=== PATIENT | male | born 1945 | race Caucasian/White ===

== ENCOUNTER 2017-11-13 05:48 | Day surgery (SDC) | payer MEDICARE, BC ==
[~2017-11-13 05:48] MED LIST: CEFAZOLIN 1 GM/D5W RTU 1 GM/50 ML RTUPB IV PRN; DEXTROSE 5%-1/2 NORMAL SALINE 1,000 ML IV PRN; DIAZEPAM 5 MG TABLET PO PRN; OXYCODONE-ACETAMINOPHEN 5-325 MG TABLET PO PRN
[2017-11-13] MEDS ORDERED: OXYCODONE-ACETAMINOPHEN 5-325 MG TABLET ONE (06:34)
[2017-11-13] MEDS ORDERED: DIAZEPAM 5 MG TABLET ONE (06:34)
[2017-11-13] MEDS ORDERED: CEFAZOLIN 1 GM/D5W RTU 1 GM/50 ML RTUPB IV ONE (06:35)
[2017-11-13 06:53] LABS: HEMATOCRIT 43.9 % (37.9-51.0); MEAN CORPUSCULAR HEMOGLOBIN 29.7 pg (27.0-33.4); MEAN CORPUSCULAR HGB CONC 34.1 g/dL (32.0-36.0); MEAN CORPUSCULAR VOLUME 87 fl (80-97); PLATELET COUNT 212 10^3/uL (150-450); RED BLOOD COUNT 5.04 10^6/uL (4.35-5.55); RED CELL DISTRIBUTION WIDTH 15.6 % (11.5-14.0); WHITE BLOOD COUNT 6.5 10^3/uL (4.0-10.5)
--- NOTE | 2017-11-13 07:19 | RADIOLOGY REPORT (SQ) ---
EXAM DESCRIPTION: XR CHEST 1 VIEW COMPLETED DATE/TME: 11/13/2017 00:00 CLINICAL HISTORY: 72 years Male, pre op screening COMPARISON: 1.13.16 NUMBER OF VIEWS/TECHNIQUE: 1/AP FINDINGS: Adequate lung volume, mild central edema pattern small patchiness of the right upper lobe and mild interstitial markings of the left lower hemithorax, normal cardiac silhouette, and intact bony thorax. IMPRESSION: Mild central pulmonary edema pattern. Differential etiologies include infectious, inflammatory, and neoplastic processes. Recommend CR/CT surveillance including at 7-12 weeks following initiation of any clinically warranted therapy.
[2017-11-13 07:20] LABS: ANION GAP 9 (5-19); BLOOD UREA NITROGEN 21 mg/dL (7-20); CALCIUM 9.1 mg/dL (8.4-10.2); CARBON DIOXIDE 26 mmol/L (22-30); CHLORIDE 101 mmol/L (98-107); GLUCOSE 103 mg/dL (75-110); SODIUM 136.4 mmol/L (137-145)
[2017-11-13] MEDS ORDERED: FENTANYL CITRATE INJ/PF 100 MCG/2 ML AMPUL ONE (07:27)
[2017-11-13] MEDS ORDERED: MIDAZOLAM 2 MG/2 ML INJ ONE (07:27)
[2017-11-13] MEDS ORDERED: LIDOCAINE 0.5% INJ-PF (5 MG/ML) 50 ML SDV ONE (07:27)
[2017-11-13] MEDS ORDERED: BACITRACIN INJ 50,000 UNIT VIAL ONE (07:28)
--- NOTE | 2017-11-13 09:26 | Discharge Summary ---
Discharge Summary (SDC) - Discharge Final Diagnosis: #1 left kidney cancer. Date of Surgery: 11/13/17 Discharge Date: 11/13/17 Condition: Good Treatment or Instructions: Discharge home [after recovery per ASU criteria]. Diet ,as tolerated, when fully awake advance as tolerated. Activities within moderation encouraged. Follow up in my office by appointment in about [1 week]. Call for appointment. Leave wounds [covered], [keep clean and dry, until office visit in 1 week]. Hold of on school/work [until evaluation in office]. Meds per med rec. Percocet. May shower [in 48 hrs], [try to keep operated area as dry as possible]. Prescriptions: Oxycodone HCl/Acetaminophen [Percocet 5-325 mg Tablet] 1 tab PO ASDIR PRN #15 tab PRN Reason: Referrals: ZACHARIAH BILLINGS MD [Primary Care Provider] - Discharge Diet: As Tolerated Respiratory Treatments at Home: Deep Breathing/Coughing Discharge Activity: Activity As Tolerated
--- NOTE | 2017-11-13 09:29 | Operative Report ---
Operative Report DATE OF SURGERY: 11/13/17 PREOPERATIVE DIAGNOSIS: #1 left kidney cancer. POSTOPERATIVE DIAGNOSIS: #1 left kidney cancer. OPERATION: 1. Ultrasound evaluation in an real time access in the right internal jugular vein. 2. Port-A-Cath insertion via real time access in the right internal jugular vein. 3. Angiogram and interpretation. SURGEON: LUIS DANIEL PERERA CHAIN OFFBEARER: None. ANESTHESIA: Moderate Sedation TISSUE REMOVED OR ALTERED: Not applicable. COMPLICATIONS: None. ESTIMATED BLOOD LOSS: 5 mL. INTRAOPERATIVE FINDINGS: Of a satisfactory right internal jugular vein to support Port-A-Cath. Easy egress of blood and ingress of heparinized solution. Smooth flow of contrast through the right atrium, ventricle and pulmonary outflow tract. Tip of catheter just down in the right atrium. PROCEDURE: After obtaining informed consent, the patient was taken to the Systems Programmer and positioned supine. The [right] neck and chest were prepared with chlorhexidine and draped out with sterile linen. After the " universal timeout", in which it was verified that the patient continued to receive antibiotic, the procedure commenced. A steriley sheathed ultrasound probe was used to evaluate the [ right] internal jugular vein. Local anesthesia was infiltrated adjacent to the probe. Access into the [right] internal jugular vein was obtained using a micropuncture needle, followed by micropuncture wire and then a micropuncture catheter. This was followed by introduction of a 0.035 guidewire the tip of which was placed down into the inferior vena cava . The port sites was marked , locally anesthetized and incision made. Dissection now proceeded to the deep subcutaneous subcutaneous tissues so that a pocket for the port was made. Meticulous hemostasis was secured and the catheter was tunneled between the 2 incisions. Proximally, the catheter was now positioned using a peel-away sheath. Distally the catheter was tailored to an appropriate length and then mated to the port using the contained fixating device. The port was now placed in the pocket and the catheter optimally positioned. The port was accessed with a Restrepo needle and an angiogram done under digital subtraction. The findings as dictated. With adequate and satisfactory positioning, the chamber was irrigated with heparinized solution. The wounds were now closed using interrupted 3-0 PDS to the subcutaneous tissues and a continuous subcuticular suture of 4-0 Monocryl to the skin. These are reinforced with Steri-Strips over benzoin and then dressings applied. Copies of the dictated operative report for Dr. Luis Daniel Barahona MD.
[2017-11-13 09:57] VITALS: BP 118/63
--- NOTE | 2017-11-13 14:09 | RADIOLOGY REPORT (SQ) ---
EXAM DESCRIPTION: PORTACATH INSERTION COMPLETED DATE/TIME: 11/13/2017 9:01 am REASON FOR STUDY: C64.2 LEFT KIDNEY CANCER C64.2 MALIGNANT NEOPLASM OF LEFT KIDNEY, EXCEPT RENAL PE LVIS Z79.899 OTHER INTERMEDIATE (CURRENT) DRUG THERAPY COMPARISON: None. FLUOROSCOPY TIME: 0.1 minute 18 images saved to PACS. TECHNIQUE: Intra-operative images acquired during surgical procedure to evaluate progress. NUMBER OF IMAGES: Multiple fluoroscopic and cine fluoroscopic images. LIMITATIONS: None. FINDINGS: Selected images from right-sided Port-A-Cath placement. Tip overlies SVC. IMPRESSION: IMAGE(S) OBTAINED DURING PROCEDURE. COMMENT: Quality ID [id number]: Final reports for procedures using fluoroscopy that document radiation exp osure indices, or exposure time and number of fluorographic images (if radiation exposure indices are not available) Please consult full operative report of the attending physician for description of the procedure. TECHNICAL DOCUMENTATION: JOB ID: [id number] [employer]- All Rights Reserved Reading location - IP/workstation name: [email or web address]
== END 2017-11-13 09:20 | disposition home or self-care (01) ==
LOC: CCL 05:48
PROVIDERS: ATTEND Surgery
DX: C64.2 Malignant neoplasm of left kidney, except renal pelvis (principal); I10 Essential (primary) hypertension; E78.00 Pure hypercholesterolemia, unspecified; N40.0 Benign prostatic hyperplasia without lower urinary tract symptoms; K40.20 Bilateral inguinal hernia, without obstruction or gangrene, not specified as recurrent; Z88.8 Allergy status to other drugs, medicaments and biological substances; Z79.899 Other long term (current) drug therapy
CPT/HCPCS: 36415; 85027; 80048; 36561; 76937; 77001; 71045; C1752; C1788; J2250; J3490 ×2; J0690; A9270 ×2; J3010; J1644

== ENCOUNTER 2019-05-19 17:22 | Emergency (ER) | payer MEDICARE, BC ==
--- NOTE | 2019-05-19 18:22 | ER Document Report ---
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 Denies any neck pain, states he has some pain in his shoulders with rotation of his neck but no pain in his neck itself. States that his temperature was 100.0 after waking up from a nap. States he felt quite tired after working outside but did feel little bit better after drinking a Coke and eating a sandwich. Denies nausea, vomiting, diarrhea, cough or sore throat. Admits a small amount of shortness of breath while walking yesterday. Also admits a left-sided headache for the past 2 days that he states was posterior in location and not associated with any neurologic symptoms such as blurry vision, neck pain, focal weakness, difficulty walking or feeling off balance. Headache has improved and is almost gone today without any intervention. Of note patient stopped his immunotherapy for his renal cell carcinoma 8 weeks ago. TRAVEL OUTSIDE OF THE [place] IN LAST 30 DAYS: No - Related Data Allergies/Adverse Reactions: codeine [Codeine] Adverse Reaction (Intermediate, Verified 11/10/17 15:23) Nausea hydrocodone [Hydrocodone] Adverse Reaction (Intermediate, Verified 11/10/17 15:23) Nausea Home Medications: Amlodipine. Lisinopril. Multivitamin. Famotidine. Fluoxetine. Fluticasone. Hydroxyzine. Trimcinolone. Clobetasol Past Medical History - General Information source: Patient - Social History Smoking Status: Never Smoker Frequency of alcohol use: everyday Drug Abuse: None Family History: Hypertension Patient has suicidal ideation: No Patient has homicidal ideation: No - Past Medical History Cardiac Medical History: Reports: Hx Hypertension Denies: Hx Coronary Artery Disease, Hx Heart Attack Pulmonary Medical History: Denies: Hx Asthma, Hx Bronchitis, Hx COPD, Hx Pneumonia Neurological Medical History: Denies: Hx Cerebrovascular Accident, Hx Seizures Musculoskeletal Medical History: Denies Hx Arthritis - Immunizations Hx Diphtheria, Pertussis, Tetanus Vaccination: Yes Hx Pneumococcal Vaccination: 02/13/13 Review of Systems - Review of Systems Constitutional: See HPI, Fever, Malaise EENT: Nose discharge - Rhinorrhea every time he eats.. denies: Throat pain Cardiovascular: No symptoms reported. denies: Chest pain, Heart racing, Orthopnea, Dizziness, Lightheaded, Edema Respiratory: See HPI, Short of breath. denies: Cough, Hurts to breathe, Hemoptysis Gastrointestinal: No symptoms reported Musculoskeletal: See HPI, Muscle pain Neurological/Psychological: See HPI, Headaches -: Yes All other systems reviewed and negative Physical Exam - Vital signs Vitals: Temp Pulse Resp BP Pulse Ox 98.8 F 110 H 20 146/81 H 96 05/19/19 17:24 05/19/19 17:24 05/19/19 17:24 05/19/19 17:24 05/19/19 17:24 Interpretation: Hypertensive, Tachycardic - Notes Notes: GENERAL: Alert, interacts well. No acute distress. HEAD: Normocephalic, atraumatic EYES: Pupils equal, round and reactive to light, extraocular movements intact. ENT: Oral mucosa moist, tongue midline. NECK: Full range of motion, supple, trachea midline. Full range of motion. No nuchal rigidity, no meningismus. LUNGS: Clear to auscultation bilaterally, no wheezes, rales or rhonchi, no respiratory distress. HEART: Regular rate and rhythm, no murmurs, gallops, rubs. ABDOMEN: Soft, nontender, nondistended, bowel sounds present in all 4 quadrants. EXTREMITIES: Moves all 4 extremities spontaneously, no edema, radial and dorsalis pedis pulses 2/4 bilaterally. No cyanosis. NEUROLOGICAL: Alert and oriented x3, normal speech, no facial droop. PSYCH: Normal mood, normal affect. SKIN: Warm, Dry, normal turgor, no rashes or lesions noted. Course - Re-evaluation Re-evalutation: 05/19/19 18:56 Chest X-Ray 05/19/19 18:14 IMPRESSION: Minimal left basilar opacity. This left basilar opacity could be coming from his metastatic RCC to his left lung, but it was not seen on a CXR in 2018 before treatment had been started, so I think in the setting of fever it is more likely pneumonia and will treat it as such. Given his cancer and use of immunosuppressants 8 weeks ago patient will be treated with Levaquin. 05/19/19 19:02 Influenza swabs are negative. - Vital Signs Vital signs: Temp Pulse Resp BP Pulse Ox 98.8 F 110 H 20 146/81 H 96 05/19/19 17:24 05/19/19 17:24 05/19/19 17:24 05/19/19 17:24 05/19/19 17:24 Discharge - Discharge Clinical Impression: Left lower lobe pneumonia Qualifiers: Pneumonia type: due to unspecified organism Qualified Code(s): J18.9 - Pneumonia, unspecified organism Renal cancer Qualifiers: Laterality: left Qualified Code(s): C64.2 - Malignant neoplasm of left kidney, except renal pelvis Condition: Stable Disposition: HOME, SELF-CARE Additional Instructions: Pneumonia Your chest x-ray shows that you have left lower lobe pneumonia. I reviewed your old chest x-ray from 2018 and there was no evidence of pneumonia on that chest x-ray at this time. I do not think we are confusing your cancer for a pneumonia today. Pneumonia is an infection of the lung tissue, usually caused by bacteria or a virus. Symptoms include cough, fever, shaking chills, chest pain, shortness of breath, and coughing up bloody sputum. Treatment for bacterial pneumonia includes rest, antibiotics, increasing your clear liquid intake, a cool mist humidifier at your bedside, and Advil or Tylenol as needed for fever. Often, a repeat chest X-ray is performed in a few weeks--even if you feel better--to ascertain whether the infection has completely resolved and no underlying lung problem is present. You should call the physician if you develop persistent vomiting, high fever that does not respond to fever medication, increasing shortness of breath, confusion, or lethargy. Also, failure to improve within two to three days is an indication for re-examination. Your flu swabs were negative. Your oxygen level is not so low that you need to be admitted. If simply walking across the room makes you feel like you are going to pass out or like you just walked up 2 flights of steps please return to the emergency department. Please let any healthcare personnel that you see know that you have been tested for coronavirus. This includes if you need to return to the emergency department. You were tested for coronavirus (COVID 19) but these results may take 7 days or more to come back. Please stay in your house until they are resulted back or until you have been completely symptom-free for at least 3 days. Prescriptions: Levofloxacin [Levaquin 750 mg Tablet] 750 mg PO DAILY #5 tablet Referrals: ZACHARIAH BILLINGS MD [Primary Care Provider] - Follow up as needed
--- NOTE | 2019-05-19 18:52 | RADIOLOGY REPORT (SQ) ---
EXAM DESCRIPTION: CHEST SINGLE VIEW IMAGES COMPLETED DATE/TIME: 05/19/2019 6:27 pm REASON FOR STUDY: fever, SOB COMPARISON: 02/25/2015 EXAM PARAMETERS: NUMBER OF VIEWS: One view. TECHNIQUE: Single frontal radiographic view of the chest acquired. RADIATION DOSE: NA LIMITATIONS: None. FINDINGS: LUNGS AND PLEURA: Minimal opacity at the left lung base. Right lung is clear. MEDIASTINUM AND HILAR STRUCTURES: No masses. Contour normal. HEART AND VASCULAR STRUCTURES: Heart normal in size. Normal vasculature. BONES: No acute findings. HARDWARE: Venous access catheter. OTHER: No other significant finding. IMPRESSION: Minimal left basilar opacity. TECHNICAL DOCUMENTATION: JOB ID: [id number] [employer]- All Rights Reserved Reading location - IP/workstation name: [email or web address]
[2019-05-19 18:57] LABS: A TYPE INFLUENZA AG NEGATIVE (NEGATIVE); B INFLUENZA AG NEGATIVE (NEGATIVE)
[2019-05-19 19:52] VITALS: BP 138/73
== END 2019-05-19 19:52 | disposition home or self-care (01) ==
LOC: ER 17:22
DX: Z20.828 Contact with and (suspected) exposure to other viral communicable diseases (principal); J18.9 Pneumonia, unspecified organism; C64.2 Malignant neoplasm of left kidney, except renal pelvis; R50.9 Fever, unspecified; R53.81 Other malaise; R51 Headache; Z88.6 Allergy status to analgesic agent
CPT/HCPCS: 71045; 87635; 87804; 99283